=== PATIENT | female | born 1995 | race African-American/Black ===

== ENCOUNTER 2019-02-21 07:45 | Inpatient (IN) | payer OTHER ==
[2019-02-21] MEDS: ELECTROLYTE-148 SOLN 1,000 ML IV SCH ×2 (08:00→12:57)
[2019-02-21 08:45] VITALS: BMI 23.3
[2019-02-21] MEDS ORDERED: BUTORPHANOL TARTRATE 1 MG/ML VIAL IVPB ONE (09:00)
[2019-02-21 09:22] LABS: BASO % 0.4 % (0-2.0); EOS % 0.3 % (0-4.5); HEMATOCRIT 35.2 % (32.4-45.2); HEMOGLOBIN 11.2 GM/dL (10.7-15.3); LYMPH % 12.6 % (8-40); MCH 28.5 pg (25.7-33.7); MCHC 31.8 g/dl (32.0-36.0); MEAN CELL VOLUME 89.8 fl (80-96); MEAN PLT VOLUME 9.2 fl (7.5-11.1); NEUT % 81.7 % (42.8-82.8); PLATELET COUNT 261 K/MM3 (134-434); RBC 3.92 M/mm3 (3.60-5.2); RDW 14.4 % (11.6-15.6); WHITE BLOOD COUNT 11.8 K/mm3 (4.0-10.0)
[2019-02-21 09:35] LABS: INR 0.95 (0.83-1.09); PROTHROMBIN TIME (PATIENT) 11.2 SEC (9.7-13.0)
--- NOTE | 2019-02-21 09:37 | HP ---
Past Medical History - Admission History of Present Illness: 23yo 40.0wks here with contractions No VB/LOF. 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: Alzheimer's, CVA, Dementia, Migraine, Multiple Sclerosis, Peripheral Neuropathy, Parkinson's, Seizure, Syncope, TIA, Vertigo, Other Cardiovascular: No: AFIB, Aneurysm, Aortic Insufficiency, Aortic Stenosis, CAD, CHF, Deep Vein Thrombosis, HTN, Hyperlipdemia, [place], Mitral Insufficiency, Mitral Stenosis, Murmur, Pulmonary Hypertension, Other Pulmonary: No: Asthma, Bronchitis, Cancer, COPD, O2 Dependent, Pneumonia, Previously Intubated, Pulmonary Embolus, Pulmonary Fibrosis, Sleep Apnea, Other Gastrointestinal: No: Ascites, Cancer, Constipation, Crohn's Disease, Diverticulitis, Diverticulosis, Esophageal Varices, Gastritis, GERD, GI Bleed, Hemorrhoids, Hiatal Hernia, Inflamatory Bowel Disease, Irritable Bowel Disease, Pancreatitis, Peptic Ulcer Disease, Ulcerative Colitis, Other Reproductive: No: Ectopic , Endometriosis, Fibroids, PID, Polycystic Ovary Syndrome, Postmenopausal, Other ...: 3 ...Para: 0 ...Term: 0 ...: 0 ...Spon : 1 ...Induced : 1 ...Multiple Gestation: 0 ...LMP: 05/18/18 ... Weeks Gestation by Dates: 40.0 ...EDC by Dates: 02/21/19 ...EDC by Sono: 02/22/19 - Past Surgical History Hx Myomectomy: No Hx Transabdominal Cerclage: No Additional Surgical History: Foreign body removed out of R food 02/17 - Smoking History Smoking history: Former smoker Have you smoked in the past 12 months: Yes Aproximately how many cigarettes per day: 1 - Alcohol/Substance Use Hx Alcohol Use: No History of Substance Use: reports: None, Cocaine, Heroin, Marijuana, Prescription, Tranquilizers - Social History Usual Living Arrangement: Yes: Alone History of Recent Travel: No Home Medications - Allergies Allergies/Adverse Reactions: Allergies Allergy/AdvReac Type Severity Reaction Status Date / Time No Known Allergies Allergy Verified 02/21/19 08:24 - Home Medications Home Medications: Ambulatory Orders NK [No Known Home Medication] 10/22/14 Review of Systems - Review of Systems Constitutional: denies: No Symptoms, Chills, Diaphoresis, Fever, Lethargy, Loss of Appetite, Malaise, Night Sweats, Unintentional Wgt. Loss, Weakness, Other Eyes: denies: No Symptoms, Blind Spots, Blurred Vision, Double Vision, Eye Pain , Floaters, Photophobia, Recent Change in Vision, Other HENT: denies: No Symptoms, Difficult Swallowing, Ear Discharge, Ear Pain, Epistaxis, Gingival Bleeding, Hearing Loss, Mouth Swelling, Nasal Congestion, Ocular Prosthesis, Throat Pain, Toothache, Ringing in Ears, Other Neck: denies: No Symptoms, Decreased ROM, Lumps, Pain on Movement, Stiffness, Swollen Glands, Tenderness, Other Cardiovascular: denies: No Symptoms, Chest Pain, Edema, Palpitations, Shortness of Breath, Other Respiratory: denies: No Symptoms, Cough, Exercise Intolerance, Hemoptysis, Orthopnea, PND, Snoring, SOB, SOB on Exertion, Wheezing, Other Gastrointestinal: denies: No Symptoms, Abdominal Pain, Bloating, Constipation, Diarrhea, Dysphagia, Indigestion, Melena, Nausea, Rectal Bleeding, Vomiting, Vomiting Blood, Other Genitourinary: denies: No Symptoms, Burning, Discharge, Dysuria, Flank Pain, Frequency, Hematuria, Incontinence, Lesions, Menses, Pain, Testicular Mass, Testicular Pain, Testicular Swelling, Urgency, Vaginal Bleeding, Other Physical Exam - Maternity Vital Signs: Vital Signs Temperature 97.7 F 02/21/19 08:36 Pulse Rate 70 02/21/19 09:01 Respiratory Rate 20 02/21/19 09:01 Blood Pressure 98/68 02/21/19 09:01 O2 Sat by Pulse Oximetry (%) Constitutional: Yes: Well Nourished, No Distress, Calm - Abdominal Exam/OB Number of Fetuses: Single Presentation: Vertex Contractions: Yes Regularity: Irregular Intensity: Mild/Mod Monitor Mode: External Heart Rate Location: [facility] Category: I Accelerations: Non-Uniform Decelerations: None - Vaginal Exam/OB Vaginal Bleediing: No Dilatation (cm): 5 Effacement (%): 75 Amniotic Membrane Status: Intact Presentation: Vertex/Position Station: -3 - Labs Lab Results: CBC, BMP 02/21/19 08:40 Assessment/Plan 23yo @ 40.0wks here in labor Admit to L&D IVFs, clears Pitocin/AROM Desires NCB, stadol/epidural prn Cat I tracing Anticipate KHOI Campbell MD
[2019-02-21 09:38] LABS: ACTIVATED PTT 29.8 SECONDS (25.2-36.5)
--- NOTE | 2019-02-21 09:38 | PN ---
Progress Note, Labor Vaginal Exam #1 Labor Exam Date: 02/21/19 Heart Rate (range): Cat I Dilatation: 4 Effacement (%): 75 Amniotic Membrane Status: Ruptured Presentation: Vertex/Position Station: -3 Remarks: Unchanged AROM, light clears Cat I tracing Anticipate Reba Campbell MD
[2019-02-21 09:49] LABS: ANION GAP 9 MMOL/L (8-16); BLOOD UREA NITROGEN 7 mg/dL (7-18); CALCIUM 8.8 mg/dL (8.5-10.1); CHLORIDE 107 mmol/L (98-107); CO2 21 mmol/L (21-32); CREATININE 0.6 mg/dL (0.55-1.3); GLUCOSE,RANDOM 120 mg/dL (74-106); POTASSIUM 3.6 mmol/L (3.5-5.1); SODIUM 137 mmol/L (136-145)
[2019-02-21] MEDS ORDERED: BUTORPHANOL TARTRATE 1 MG/ML VIAL ONE ×2 (12:18)
[2019-02-21] MEDS ORDERED: PROMETHAZINE HCL 25 MG/1 ML VIAL ONE (12:19)
[2019-02-21] MEDS ORDERED: PROMETHAZINE HCL 25 MG/1 ML VIAL IVPB ONE (12:20)
[2019-02-21] MEDS ORDERED: OXYTOCIN 20 UNITS in 0.9% NS 20 UNIT/1,000 ML INFUS.BAG IV ONE (14:49)
[2019-02-21] MEDS ORDERED: FENTANYL/BUPIVACAINE/NS/PF - PCEA - 50 ML DISP.SYRIN EP ONE (15:13)
[2019-02-21] MEDS ORDERED: ELECTROLYTE-148 SOLN 1,000 ML IV SCH ×2 (15:15→18:15)
[2019-02-21] MEDS ORDERED: NALOXONE HCL 0.4 MG/ML VIAL IVPUSH PRN (15:21)
[2019-02-21] MEDS ORDERED: BUPIVACAINE HCL/PF 0.25% (2.5MG/ML) 10 ML VIAL ONE (15:22)
[2019-02-21] MEDS ORDERED: LIDO 2%/EPI 1:200000 PRESRVFRE (20 ML SDVIAL) ONE ×2 (15:23→18:17)
--- NOTE | 2019-02-21 15:25 | PN ---
Progress Note (short form) - Note Progress Note: 23 yo , @ 39.6 weeks gestation, admitted for labor pain. I came to evaluate patient , she was out of control ( getting out of bed with monitor on ). She has been refusing epidural anesthesia. FHR : No decelerations Basye : + contractions q 1 min VE : 6/90/-1 Internal monitor attempted A/P Active labor Epidural anesthesia recommended ( Pt finally agrees ) Anticipate
[2019-02-21] MEDS ORDERED: FENTANYL/BUPIVACAINE/NS/PF - PCEA - 50 ML DISP.SYRIN EP SCH ×2 (15:30→16:28)
--- NOTE | 2019-02-21 17:49 | PN ---
Progress Note (short form) - Note Progress Note: Patient re-evaluated, she's comfortable; status post epidural anesthesia. FHR : Non reassuring VE : / -1 Decision made for delivery. Consent signed Prep and shave
[2019-02-21] MEDS ORDERED: ELECTROLYTE-148 SOLN 1,000 ML IV ONE (18:15)
[2019-02-21] MEDS ORDERED: CITRIC ACID/SODIUM CITRATE 30 ML UNIT-DOSE CUP PO ONE (18:15)
[2019-02-21] MEDS ORDERED: ceFAZolin SODIUM 1 GM VIAL ONE (18:26)
[2019-02-21] MEDS ORDERED: OXYTOCIN 10 UNITS/ML VIAL ONE (18:37)
[2019-02-21] MEDS: OXYTOCIN 20 UNITS in 0.9% NS 20 UNIT/1,000 ML INFUS.BAG IV SCH (18:40)
[2019-02-21] MEDS ORDERED: morphine SULFATE/Preservative Free 0.5 MG/ML (1cc Syringe) ONE ×7 (18:41)
[2019-02-21] MEDS ORDERED: MIDAZOLAM HCL 2 MG/2 ML SINGLE DOSE VIAL ONE (18:43)
[2019-02-21] MEDS ORDERED: METHYLERGONOVINE MALEATE 0.2 MG/1 ML AMP IM PRN (19:03)
--- NOTE | 2019-02-21 19:07 | OP ---
Operative Note - Note: Operative Date: 02/21/19 Pre-Operative Diagnosis: Non Reassuring heart rate Operation: Primary Low Transverse Findings: Baby boy in cephallic presentation Post-Operative Diagnosis: Same as Pre-op Surgeon: Yaquelin Oneill Firmware Software Verification Engineer: Hoang Steele Anesthesia: Epidural Specimens Removed: Placenta Estimated Blood Loss (mls): 500 Operative Report Dictated: Yes
[2019-02-21] MEDS ORDERED: ONDANSETRON 4 MG/2 ML VIAL ONE (19:18)
[2019-02-21 19:28] LABS: VENOUS PC02 44.4 mmHg (41-51); VENOUS PH 7.28 (7.31-7.41); VENOUS PO2 15.9 mmHg (30-40)
[2019-02-21 19:31] LABS: ARTERIAL BLD GAS O2 SATURATION 10.2 % (95-98); ARTERIAL BLOOD GAS BASE EXCESS -7.5 meq/l (-2-2); ARTERIAL BLOOD GAS PCO2 47.5 mmHg (35-45); ARTERIAL BLOOD GAS PO2 11.6 mmHg (80-105); ARTERIAL BLOOD GAS pH 7.25 (7.35-7.45)
[2019-02-21] MEDS ORDERED: ONDANSETRON 4 MG/2 ML VIAL IVPUSH PRN (19:35)
[2019-02-21] MEDS ORDERED: morphine SULFATE/Preservative Free 0.5 MG/ML (1cc Syringe) EP ONE (19:35)
[2019-02-21 20:22] LABS: COCAINE, UR NEGATIVE ng/ml (CUTOFF=300); METHADONE, UR NEGATIVE ng/ml (CUTOFF=300); OPIATES, URI NEGATIVE ng/ml (CUTOFF=300); PHENCYCLIDINE,URINE NEGATIVE ng/ml (CUTOFF=25); URINE AMPHETAMINES NEGATIVE ng/ml (CUTOFF=500); URINE BARBITURATES NEGATIVE ng/ml (CUTOFF=200); URINE BENZODIAZEPINES NEGATIVE ng/ml (CUTOFF=200)
[2019-02-21] MEDS: IBUPROFEN 800 MG/8 ML IJ IVPB PRN (21:34)
[2019-02-21] MEDS: FERROUS SO4 325 MG TABLET (FP) PO SCH (21:42)
--- NOTE | 2019-02-22 00:17 | OP ---
DATE OF OPERATION: 02/21/2019 PREOPERATIVE DIAGNOSIS: Intrauterine at 39 weeks with nonreassuring heart rate. POSTOPERATIVE DIAGNOSIS: Intrauterine at 39 weeks with nonreassuring heart rate. PROCEDURE: Primary low transverse section. SURGEON: Yaquelin Oneill MD ANESTHESIA: Epidural. COMPLICATIONS: None. ESTIMATED BLOOD LOSS: 500 mL PROCEDURE: Patient was taken to the operating room where an epidural anesthesia was found to be adequate. Patient was then prepped and draped in proper sterile fashion. A Pfannenstiel skin incision was made and carried down to the underlying layer of fascia. The fascia was incised in the midline and extended laterally. The superior aspect of the fascial incision was then grasped with Lainey clamp, elevated, and the rectus muscles dissected off bluntly. Attention was then turned to the inferior aspect of the fascial incision, which in a similar fashion was then grasped with Lainey clamp, elevated, and the rectus muscle dissected off bluntly. The rectus muscles were then in the midline. The peritoneum identified and entered sharply with Metzenbaum scissors. The peritoneal incision was extended superiorly and inferiorly with good visualization of the bladder. The bladder blade was then inserted and the vesicouterine peritoneum was then grasped with a pickup and entered sharply with Metzenbaum scissors. This incision was extended laterally and a bladder flap created digitally. The bladder blade was then reinserted and the lower uterine segment was incised with a 10-blade. This incision was extended laterally and the head delivered atraumatically. Nose and mouth were suctioned and the cord clamped and cut. The was handed to the waiting space officer. The placenta was then removed manually. The uterus was exteriorized and cleared of all clots and debris. The uterine incision was repaired using 0 Biosyn in a running locked fashion. A second layer of the same suture was used as a means to provide excellent hemostasis. The pelvis was then completely irrigated. The uterus was returned to the abdomen. The peritoneum was closed using 2-0 Biosyn. The fascia was reapproximated using 0 Vicryl in a running fashion. The skin was closed with sue. Patient tolerated the procedure well. Patient was then taken to the PACU in stable condition. PATHOLOGY: Placenta. Marilyn HALLMAN/[id number] MTDD
[2019-02-22 07:28] LABS: BASO % 0.1 % (0-2.0); HEMATOCRIT 26.7 % (32.4-45.2); HEMOGLOBIN 8.9 GM/dL (10.7-15.3); LYMPH % 9.9 % (8-40); MCHC 33.3 g/dl (32.0-36.0); MEAN CELL VOLUME 90.2 fl (80-96); MEAN PLT VOLUME 9.3 fl (7.5-11.1); MONO % 7.8 % (3.8-10.2); NEUT % 82.2 % (42.8-82.8); PLATELET COUNT 205 K/MM3 (134-434); RBC 2.95 M/mm3 (3.60-5.2); RDW 14.3 % (11.6-15.6); WHITE BLOOD COUNT 16.5 K/mm3 (4.0-10.0)
[2019-02-22] MEDS: IBUPROFEN 800 MG/8 ML IJ IVPB PRN (09:01)
[2019-02-22] MEDS: FERROUS SO4 325 MG TABLET (FP) PO SCH ×2 (10:15→22:26)
--- NOTE | 2019-02-22 10:28 | PN ---
Post Progress Note - Subjective Subjective: 23 yo Para 1 status post primary , seen and evaluated. Doing well. She's lying comfortably in bed. Post Day: 1 Type of Delivery: Primary C/S Vital Signs: Vital Signs Temperature 99.1 F 02/22/19 08:04 Pulse Rate 70 02/22/19 08:04 Respiratory Rate 20 02/22/19 10:00 Blood Pressure 114/73 02/22/19 08:04 O2 Sat by Pulse Oximetry (%) 99 02/21/19 20:15 Breast Exam: Yes: Soft Uterus: Yes: Fundus Firm Incision: Yes: Dressing dry and intact Abdomen/GI: Yes: Abdomen soft Lochia: Yes: Rubra Lochia, amount: Small Extremities: Yes: Calves non-tender - Labs Labs: CBC WBC 16.5 K/mm3 (4.0-10.0) H 02/22/19 07:00 RBC 2.95 M/mm3 (3.60-5.2) L 02/22/19 07:00 Hgb 8.9 GM/dL (10.7-15.3) L 02/22/19 07:00 Hct 26.7 % (32.4-45.2) L D 02/22/19 07:00 MCV 90.2 fl (80-96) 02/22/19 07:00 MCH 30.0 pg (25.7-33.7) 02/22/19 07:00 MCHC 33.3 g/dl (32.0-36.0) 02/22/19 07:00 RDW 14.3 % (11.6-15.6) 02/22/19 07:00 Plt Count 205 K/MM3 (134-434) D 02/22/19 07:00 MPV 9.3 fl (7.5-11.1) 02/22/19 07:00 Absolute Neuts (auto) 13.5 K/mm3 (1.5-8.0) H 02/22/19 07:00 Neutrophils % 82.2 % (42.8-82.8) 02/22/19 07:00 Lymphocytes % 9.9 % (8-40) D 02/22/19 07:00 Monocytes % 7.8 % (3.8-10.2) 02/22/19 07:00 Eosinophils % 0.0 % (0-4.5) D 02/22/19 07:00 Basophils % 0.1 % (0-2.0) 02/22/19 07:00 Nucleated RBC % 0 % (0-0) 02/22/19 07:00 Problem List - Problems (1) Status post primary low transverse section Code(s): Z98.891 - HISTORY OF UTERINE SCAR FROM PREVIOUS SURGERY Assessment/Plan Status post primary Inappropriate behavior Ambulation Analgesia as needed Psychiatry consult
[2019-02-22] MEDS: PRENATAL VITAMINS W/ FOLIC ACID TABLET (FP) PO SCH (12:04)
--- NOTE | 2019-02-22 13:02 | PN ---
Progress Note (short form) - Note Progress Note: Anesthesia postop note 23y/o F s/p spinal anesthesia for section POD#1, vss, aaox3, sensory motor intact distally No anesthesia complications.
[2019-02-22] MEDS: IBUPROFEN 600 MG TABLET (FP) PO PRN ×2 (16:36→22:19)
[2019-02-22] MEDS: oxyCODONE HCL 5 MG TABLET PO PRN ×2 (16:36→22:17)
[2019-02-22] MEDS: SIMETHICONE 80 MG TAB.CHEW (FP) PO PRN ×2 (16:37→22:17)
[2019-02-22] MEDS ORDERED: BISACODYL 10 MG SUPP.RECT RC PRN (19:03)
[2019-02-23] MEDS: oxyCODONE HCL 5 MG TABLET PO PRN ×5 (04:30→23:40)
[2019-02-23] MEDS: IBUPROFEN 600 MG TABLET (FP) PO PRN ×5 (04:32→23:39)
[2019-02-23] MEDS: SIMETHICONE 80 MG TAB.CHEW (FP) PO PRN ×3 (09:11→19:43)
[2019-02-23] MEDS: FERROUS SO4 325 MG TABLET (FP) PO SCH ×2 (09:11→21:44)
[2019-02-23] MEDS: PRENATAL VITAMINS W/ FOLIC ACID TABLET (FP) PO SCH (09:11)
--- NOTE | 2019-02-23 11:58 | CON.PSY ---
Psychiatry Consult Chief Complaint: Patient sdeen for psych evaluation. 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 No previous psych Illness. Marijuana user. - Previous Psychiatric Treatment Outpatient: None Inpatient: None - Previous Substance Abuse Treatment Outpatient: None - Reason for Previous Treatment Reason for Previous Treatment: Marijuana - Current Medications Current Medications: Active Medications Bisacodyl (Dulcolax Suppository -) 10 mg RC PRN PRN PRN Reason: CONSTIPATION Last Admin: 02/22/19 22:22 Dose: 10 mg Diphenhydramine HCl (Benadryl Injection -) 25 mg IVPUSH Q4H PRN PRN Reason: Pruritis Ferrous Sulfate (Feosol -) 325 mg PO BID [facility] Last Admin: 02/23/19 09:11 Dose: 325 mg Oxytocin/Sodium Chloride (Normal Saline+20 Units Oxytocin -) 20 unit in 1,000 mls @ 125 mls/hr IV ASDIR [facility] Last Admin: 02/21/19 18:40 Dose: 125 mls/hr Ibuprofen (Motrin -) 600 mg PO Q4H PRN PRN Reason: PAIN LEVEL 1 - 3 Last Admin: 02/23/19 09:12 Dose: 600 mg Ibuprofen (Caldolor Injection -) 800 mg IVPB Q8H PRN PRN Reason: PAIN LEVEL 4 - 6 Last Admin: 02/22/19 09:01 Dose: 800 mg Methylergonovine Maleate (Methergine Injection -) 0.2 mg IM Q4H PRN PRN Reason: Excessive Bleeding (L&D) Ondansetron HCl (Zofran Injection) 4 mg IVPUSH Q4H PRN PRN Reason: NAUSEA Last Admin: 02/21/19 19:20 Dose: 4 mg Oxycodone HCl (Roxicodone -) 5 mg PO Q4H PRN PRN Reason: PAIN LEVEL 4 - 6 Last Admin: 02/23/19 09:12 Dose: 5 mg Multivit/Folic Acid/Iron ( Vitamins (Sjr) -) 1 tab PO DAILY [facility] Last Admin: 02/23/19 09:11 Dose: 1 tab Simethicone (Mylicon -) 80 mg PO Q4H PRN PRN Reason: GAS Last Admin: 02/23/19 09:11 Dose: 80 mg - Allergies Allergies: Allergies Allergy/AdvReac Type Severity Reaction Status Date / Time No Known Allergies Allergy Verified 02/21/19 08:24 - Current Living Status Usual Living Arrangement: With Significant Other - Current Mental Status Evaluation Appearance: Well Groomed Attitude: Cooperative - Affect Affect: Full Range Appropriateness: Appropriate to Content - Mood Mood: Euthymic - Speech/Language Expressive: Coherent - Psychomotor Activity Psychomotor Activity: Normal - Thought Process Thought Process: Intact - Thought Content Hallucinations: Absent Delusions: Absent - Self Perception Self Perception: No Impairment - Cognition Attention: Alert Orientation: Time Memory, Immediate Recall: Intact Memory, Short Term: 3/3 Memory, Remote with Promptin/3 - Concentration Serial Sevens Intact: Yes Simple Calculations Intact: Yes - Abstraction Proverb Interpretation: Intact Judgement: Intact - Insight Insight: Intact - Impulse Control Impulse Control: Good Control - Suicidal Ideation Suicidal Ideation: No - Homicidal Ideation Homicidal Ideation: No Assessment/Plan 1) No acute Psych Illness. 2) can be discharged when medically clear.
[2019-02-24] MEDS: IBUPROFEN 600 MG TABLET (FP) PO PRN ×3 (05:56→20:09)
[2019-02-24] MEDS: oxyCODONE HCL 5 MG TABLET PO PRN ×2 (05:56→14:47)
[2019-02-24 07:19] LABS: BASO % 0.4 % (0-2.0); EOS % 1.3 % (0-4.5); HEMATOCRIT 26.8 % (32.4-45.2); HEMOGLOBIN 8.9 GM/dL (10.7-15.3); LYMPH % 22.5 % (8-40); MCH 29.7 pg (25.7-33.7); MEAN CELL VOLUME 89.9 fl (80-96); MEAN PLT VOLUME 8.8 fl (7.5-11.1); MONO % 9.2 % (3.8-10.2); NEUT % 66.6 % (42.8-82.8); PLATELET COUNT 219 K/MM3 (134-434); RBC 2.98 M/mm3 (3.60-5.2); RDW 14.2 % (11.6-15.6); WHITE BLOOD COUNT 7.9 K/mm3 (4.0-10.0)
[2019-02-24] MEDS: PRENATAL VITAMINS W/ FOLIC ACID TABLET (FP) PO SCH (10:07)
[2019-02-24] MEDS: FERROUS SO4 325 MG TABLET (FP) PO SCH ×2 (10:07→22:29)
[2019-02-24] MEDS: OXYTOCIN 20 UNITS in 0.9% NS 20 UNIT/1,000 ML INFUS.BAG IV SCH (19:58)
[2019-02-25] MEDS: IBUPROFEN 600 MG TABLET (FP) PO PRN ×3 (00:04→11:14)
[2019-02-25] MEDS: ACETAMINOPHEN 325 MG TABLET (FP) PO PRN ×3 (00:04→11:15)
--- NOTE | 2019-02-25 07:35 | PN ---
Progress Note (short form) - Note Progress Note: pod 4, s/p c/s ,doing well, has mild incisional pain CBC, BMP 02/24/19 06:30 02/21/19 08:40 Last Vital Signs Temp Pulse Resp BP Pulse Ox 98.0 F 58 L 18 108/67 99 02/24/19 22:00 02/24/19 22:00 02/24/19 22:00 02/24/19 22:00 02/21/19 20:15 abdomen soft, no distension, no cva incision dry, clean no calf tenderness plan ambulate ,d/c home .follow up [facility] 1 week
--- NOTE | 2019-02-25 07:36 | DS ---
Physical Exam-SERVICE DESK TECHNICIAN Vital Signs: Vital Signs Temperature 98.0 F 02/24/19 22:00 Pulse Rate 58 L 02/24/19 22:00 Respiratory Rate 18 02/24/19 22:00 Blood Pressure 108/67 02/24/19 22:00 O2 Sat by Pulse Oximetry (%) 99 02/21/19 20:15 Constitutional: Yes: Well Nourished, No Distress, Calm Eyes: Yes: WNL, Conjunctiva Clear, EOM Intact HENT: Yes: WNL, Atraumatic, Normocephalic Neck: Yes: WNL, Supple, Trachea Midline Cardiovascular: Yes: WNL, Regular Rate and Rhythm Respiratory: Yes: WNL, Regular, CTA Bilaterally Gastrointestinal: Yes: WNL ...Rectal Exam: Yes: WNL Renal/: Yes: WNL ....Post : Yes: Uterus firm, Uterus non-tender, Slight lochia rubra Breast(s): Yes: WNL Musculoskeletal: Yes: WNL Extremities: Yes: WNL Integumentary: Yes: WNL Wound/Incision: Yes: Clean/Dry, Well Approximated Neurological: Yes: WNL, Alert, Oriented ...Motor Strength: WNL Psychiatric: Yes: WNL, Alert, Oriented Labs: CBC, BMP 02/24/19 06:30 02/21/19 08:40 Delivery - Delivery Section: Primary, Low Flap Transverse Type of Anesthesia: Epidural Episiotomy/Laceration: None EBL (cc): 500 Delivery, Single - Stages of Labor Date 1st Stage Initiatied: 02/20/19 Time 1st Stage Initiated: 23:00 Date of Delivery: 02/21/19 Time of Delivery: 18:39 Time Placenta Delivered: 18:40 Placenta: Yes: Expressed - Condition of Rn Hospital/Proofreader Present: Yes Name: Concepcion Lay Gender: Male Weight: 7 lb 3 oz Total Hours ROM (Hrs/Mins): 9/10 - 1 Minute Total Score: 9 5 Minutes Total Score: 9 - [place] Feeding Plan Initial Plan: Elected not to breastfeed exclusively throughout hospitalization Discharge Summary Reason For Visit: LABOR Current Active Problems Status post primary low transverse section (Acute) Procedures: Principal: primary LST c/s - Instructions Diet, Activity, Other Instructions: Regular diet return to clinic in 1 week to remove sue. call [facility] for appointment. [phone] Referrals: Chidi Gunn MD [Staff Physician] - Disposition: HOME - Home Medications Comprehensive Discharge Medication List: Ambulatory Orders Ibuprofen [Motrin -] 600 mg PO QID #28 tablet 02/25/19
[2019-02-25] MEDS: FERROUS SO4 325 MG TABLET (FP) PO SCH (11:11)
[2019-02-25] MEDS: PRENATAL VITAMINS W/ FOLIC ACID TABLET (FP) PO SCH (11:11)
[2019-02-25 14:41] VITALS: BP 124/72; PULSE 57; TEMP 98.1
--- NOTE | 2019-02-28 15:05 | PATH ---
Surgical Pathology Report Patient Name: MEDINA OLIVAS Med. Rec. #: [id number] /Age/Gender: 1995 (Age: 23) / F Account: [id number] Location: [facility] OBS/COMMERCIAL ACCOUNTANT Taken: 02/21/2019 Received: 02/22/2019 Reported: 02/28/2019 Physicians: Marilyn Rios Specimen(s) Received PLACENTA Clinical History , meconium staining, primary Final Diagnosis PLACENTA, SECTION: 387 G THIRD TRIMESTER PLACENTA WITH TRIVASCULAR UMBILICAL CORD AND PLACENTAL MEMBRANES WITH FEW MECONIUM LADEN MACROPHAGES. Electronically Signed Susana Kimbrough M.D. Gross Description The specimen is received fresh labeled placenta and is a 387 gram, 17.5 x 15.0 x 2.8 cm. placenta with attached membranes and umbilical cord. The attached membranes are roland, translucent with focal opacities and insert marginally. The umbilical cord measures 19 cm. in length and averages 1.1 cm. in diameter. The cord inserts centrally. No true knots or strictures are identified. Cut surface of the umbilical cord reveals 3 vessels. The surface is alexis green, meconium stained with moderate fibrin deposition and appropriate caliber vessels. The maternal surface is red-brown with focal defects. Sectioning reveals red-brown, spongy parenchyma. No lesions are identified. Cotton Stomper sections are submitted in three cassettes as follows: 1- membrane rolls and umbilical cord; 2-3- full thickness sections of placenta. /02/25/2019 saudi02/25/2019
== END 2019-02-25 13:35 | disposition home or self-care (01) | DRG 540 ==
LOC: JLDR 07:45 → J3W 21:00
PROVIDERS: ADMIT Obstetrics & Gynecology; ATTEND Obstetrics & Gynecology
PROC: 10D00Z1 Extraction of Products of Conception, Low, Open Approach (ICD-10-PCS; principal; 2019-02-21)
DX: O48.0 Post-term pregnancy (principal); O99.324 Drug use complicating childbirth; O76 Abnormality in fetal heart rate and rhythm complicating labor and delivery; F12.10 Cannabis abuse, uncomplicated; Z3A.40 40 weeks gestation of pregnancy; Z37.0 Single live birth; Z87.891 Personal history of nicotine dependence; F91.8 Other conduct disorders
CPT/HCPCS: 36415; 36600; 80048; 80307; 82803; 85025; 85610; 85730; 86593; 86850; 86900; 86901; 88307-TC